=== PATIENT | male | born 1985 | race Two or more races ===

== ENCOUNTER 2018-03-17 04:53 | Emergency (ER) | payer SELFPAY ==
[2018-03-17 05:10] VITALS: BP 145/76; PULSE 67; RESP 18; TEMP 96.7
== END 2018-03-17 05:41 | disposition home or self-care (01) | DRG 159 ==
LOC: ED 04:53
DX: K08.89 Other specified disorders of teeth and supporting structures (principal)
CPT/HCPCS: 99282